=== PATIENT | female | born 1935 | race Caucasian/White ===

== ENCOUNTER 2018-01-16 15:53 | Inpatient (IN) | END 2018-01-30 20:29 | DRG 853 ==

== ENCOUNTER 2018-02-17 14:32 | Emergency (ER) | END 2018-02-17 22:00 | disposition home or self-care (01) ==

== ENCOUNTER 2018-02-24 17:28 | Inpatient (IN) | END 2018-03-04 19:30 | DRG 566 ==

== ENCOUNTER 2018-05-23 09:28 | Day surgery (SDC) | END 2018-05-23 18:22 | disposition home or self-care (01) ==